=== PATIENT | female | born 1990 | race Hispanic/Latino ===

== ENCOUNTER → 2017-07-03 | Day surgery (SDC) | payer BC ==
[~2017-07-03] MED LIST: BELLADONNA/OPIUM 60 MG SUPP PR ONE; DEXAMETHASONE SOD PHOS INJ 4 MG/ML VIAL ONE; FENTANYL CITRATE/PF 100MCG/2 ML INJ ONE; FLUCONAZOLE 200 MG/100 ML 100 ML IV ONE; GENTAMICIN SULFATE 320 MG in SODIUM CHLORIDE 0.9% 100 ML 100 ML IV SCH; IOPAMIDOL 610MG/1ML 300 MG/ML VIAL IV ONE; LIDOCAINE HCL 2% LOCAL INJ 5 ML SDV VIAL INJ ONE; MIDAZOLAM HCL 2 MG/2 ML VIAL ONE; ONDANSETRON HCL INJ 2 MG/ML VIAL ONE; PIPER-TAZ 3.375 GM 50 ML ONE; PROPOFOL IV EMULSION 10 MG/ML 20 ML VIAL ONE; SEVOFLURANE INHAL SOLN 250 ML PEN BTL ONE
[2017-07-03 12:33] LABS: BASOPHILS # (AUTO) 0.1 (0.0-0.1); BASOPHILS % 0.8 % (0.0-1.0); EOSINOPHILS # (AUTO) 0.5 (0.0-0.4); EOSINOPHILS % 6.6 % (0.0-6.0); HEMATOCRIT 34.3 % (34.2-44.1); HEMOGLOBIN 11.5 g/dL (12.0-16.0); LYMPHOCYTES # (AUTO) 2.5 (1.0-3.2); LYMPHOCYTES % 34.9 % (18.0-39.1); MEAN CORPUSCULAR HGB CONC 33.5 g/dL (31-35); MEAN CORPUSCULAR VOLUME 86.6 fL (81-99); MONOCYTES # (AUTO) 0.5 (0.2-0.8); MONOCYTES % 6.9 % (4.4-11.3); NEUTROPHILS # (AUTO) 3.6 (2.1-6.9); NEUTROPHILS % 50.4 % (38.7-80.0); PLATELET COUNT 212 x10e3/uL (140-360); RED BLOOD COUNT 3.96 x10e6/uL (3.6-5.1); RED CELL DISTRIBUTION WIDTH 12.7 % (11.7-14.4)
[2017-07-03 12:45] LABS: ANION GAP 13.4 mmol/L (8-16); BLOOD UREA NITROGEN 5 mg/dL (7-26); BUN/CREATININE RATIO 8 (6-25); CALCIUM 8.9 mg/dL (8.4-10.2); CARBON DIOXIDE 21 mmol/L (22-29); CHLORIDE 109 mmol/L (98-107); CREATININE, SERUM 0.62 mg/dL (0.57-1.11); EST GLOMERULAR FILTRATION RATE > 60 ML/MIN (60-); GLUCOSE 99 mg/dL (74-118); POTASSIUM 3.4 mmol/L (3.5-5.1); SODIUM 140 mmol/L (136-145)
--- NOTE | 2017-07-03 13:04 | Diagnostic Imaging Report ---
PROCEDURE:X-RAY ABDOMEN - KUB COMPARISON:None. INDICATIONS:RIGHT STENT PRE OP, RIGHT URETAL STONE FINDINGS: There is a right double-J ureteral stent which appears in adequate position. An approximately 0.6 cm ossific density projected just lateral to the proximal to midportion of the stent. There is a non-obstructed bowel-gas pattern.. There are no acute osseous abnormalities. The lung bases are clear. CONCLUSION: 0.6 cm proximal to mid right ureteral calculus status post double-J ureteral stent placement in adequate position. Vicente Neff M.D. Dictated by: Vicente Neff M.D. on 07/03/2017 at 13:04 Electronically approved by: Vicente Neff M.D. on 07/03/2017 at 13:04
--- NOTE | 2017-09-06 12:09 | Operative Report ---
DATE OF PROCEDURE: July 03, 2017 PREOPERATIVE DIAGNOSES 1. Right ureterolithiasis. 2. Foreign body (right indwelling ureteral stent). POSTOPERATIVE DIAGNOSES 1. Right ureterolithiasis. 2. Foreign body (right indwelling ureteral stent). 3. Mild cystocele. 4. Mild rectocele. PROCEDURES PERFORMED 1. Cystourethroscopy with complicated removal of right indwelling ureteral stent (separate procedure performed for diagnosis of stent). 2. Right ureteroscopy with holmium laser lithotripsy, extraction of stone material, and placement of a new stent (separate procedure performed for diagnosis of the obstructing stone). 3. Radiological services for supervision and interpretation of ureteroscopy. 4. Interpretation of retrograde ureteropyelography. 5. Supervision of fluoroscopy, no radiologist present. 6. Pelvic examination under anesthesia. ANESTHESIA: General. COMPLICATIONS: None. CLINICAL SUMMARY: Deborah Turcios is a 27-year-old woman with an indwelling ureteral stent that was placed for obstructing stone. She was brought for the management of the stone. She is aware of the risks of bleeding, infection, injury to adjacent structures, need for additional procedures, and elected to proceed. OPERATIVE PROCEDURE IN DETAIL: Informed consent was verified. Deborah Turcios was properly identified, taken to operating room, placed on the cystoscopy table in supine position. Anesthesia was uneventfully begun. Patient was then carefully and gently repositioned in dorsal lithotomy position with all pressure points well padded. Her genitalia were prepared and draped in the usual sterile fashion. A 22.5-Jordanian cystoscope sheath with obturator in place was atraumatically inserted in patient's urethra and the bladder was drained. Panendoscopy of the bladder revealed no suspicious mucosal lesions, no tumors, no stones, and no diverticula. Stent was noted to be emerging from the right ureteral orifice. A guidewire was then placed alongside the stent and guided to the level of the patient's kidney. The stent was then grasped, completely removed, and discarded. Ureteroscope was then placed alongside the guidewire up into the right ureter. We identified this large stone. The stone was visually obstructing and there was some ureteral reaction and inflammation around it. Holmium laser lithotripsy was then utilized to break up the stone into multiple smaller fragments and then multiple passes with the basket were made in order to extract the largest of the fragments in an atraumatic fashion. Once all significantly sized stones were removed with cystoscopic and fluoroscopic guidance, a right-sided indwelling ureteral stent was then placed. It was coiled in patient's kidney as well as in the patient's bladder. The retaining suture was cut short. Interpretation of retrograde ureteropyelography: Contrast was instilled in retrograde fashion on the right hand side. There was hydroureteronephrosis down to the level of patient's stone. This was mild due to the fact that patient has had a stent in place. This new stent was in good position, coiled in patient's kidney as well as in patient's bladder at the end of the case. Patient's bladder was drained. Cystoscope was withdrawn. Pelvic examination under anesthesia revealed a mild cystorectocele. No suspicious mucosal lesions were identified. There were no obvious pelvic masses that could be appreciated. The patient was then uneventfully reversed from anesthesia and taken to the recovery room in stable condition. There were no complications through the procedure. The patient tolerated the procedure well. Plans will be to return the patient to the operating room to remove her stent and evaluate and manage any residual stones. Job#: [id number] VAS
== END | disposition home or self-care (01) ==
LOC: OR 11:00
PROVIDERS: ATTEND Urology
DX: N20.1 Calculus of ureter (principal); N20.0 Calculus of kidney; Z46.6 Encounter for fitting and adjustment of urinary device; N39.0 Urinary tract infection, site not specified; N39.46 Mixed incontinence; R35.1 Nocturia; N81.10 Cystocele, unspecified; N81.6 Rectocele; Z68.32 Body mass index [BMI] 32.0-32.9, adult
CPT/HCPCS: 36415; 52356; 74018; 74420; 80048; 81025; 83970; 84550; 85025; 88300; J1100; J1450; J1580; J2001; J2250; J2405; J2543; Q9967

== ENCOUNTER 2017-07-22 23:01 | Inpatient (IN) | payer BC ==
[~2017-07-22] VITALS: Ht 167.6 cm; Wt 91.2 kg
--- OUTSIDE RECORDS SUMMARY | 2017-07-22 23:04 | XMS REPORT ---
Author Author [facility] Address Unknown Phone Unavailable Care Team Providers Care Home Care Manager Name Role Phone PEACE DELCID Unavailable Unavailable Problems This patient has no known problems. Allergies, Adverse Reactions, Alerts This patient has no known allergies or adverse reactions. Medications This patient has no known medications. Results Test Description Test Time Test Comments Text Results Atomic Results Result Comments ABDOMEN-1VIEW (KUB) [place] [id number] Patient Name: ARI PAINTING MR #: [id number] : 1990 Age/Sex: 27/F Req #: [id number] Adm Physician: Ordered by: PEACE DELCID MD Report #: [id number] Location: OR Room/Bed: Procedure: [id number] DX/ABDOMEN-1VIEW (KUB) Exam Date: 07/03/17 Exam Time : 1200 REPORT STATUS: Signed PROCEDURE: X-RAY ABDOMEN - KUB COMPARISON: None. INDICATIONS: RIGHT STENT PRE OP, RIGHT URETAL STONE FINDINGS: There is a right double-J ureteral stent which appears in adequate position. An approximately 0.6 cm ossific density projected just lateral to the proximal to midportion of the stent. There is a non- obstructed bowel-gas pattern.. There are no acute osseous abnormalities. The lung bases are clear. CONCLUSION: 0.6 cm proximal to mid right ureteral calculus status post double-J ureteral stent placement in adequate position. Vicente Pleitez M.D. Dictated by: Vicente Pleitez M.D. on 07/03/2017 at 13:04 Electronically approved by: Vicente Pleitez M.D. on 07/03/2017 at 13:04 Dictated By: BLAYNE PLEITEZ MD, MD [id number] COPY TO: PEACE DELCID MD
[2017-07-22 23:27] LABS: BILIRUBIN,URINE NEGATIVE (NEGATIVE); KETONES,URINE NEGATIVE (NEGATIVE); LEUKOCYTE ESTERASE ,URINE 2+ (NEGATIVE); NITRITE,URINE NEGATIVE (NEGATIVE); URINE UROBILINOGEN 1 mg/dL (0.2 - 1)
[2017-07-22 23:28] LABS: CLARITY,URINE CLOUDY (CLEAR); COLOR,URINE YELLOW (YELLOW); PROTEIN,URINE DIPSTICK 2+ (NEGATIVE)
[2017-07-22 23:29] LABS: PREGNANCY TEST, URINE NEGATIVE (NEGATIVE)
[2017-07-22] MEDS ORDERED: KETOROLAC TROMETHAMINE 60 MG/2 ML VIAL IM ONE (23:30)
[2017-07-22 23:35] LABS: BACTERIA,URINE MODERATE /HPF; EPITHELIAL CELLS,URINE FEW /LPF; RBC,URINE >50 /HPF (0-5); WBC,URINE (MAN) >50 /HPF (0-5)
[2017-07-22 23:36] LABS: MUCUS,URINE MODERATE (RARE)
[2017-07-23] VITALS (7 sets, daily range): BP systolic 95–118; BP diastolic 50–60
--- NOTE | 2017-07-23 00:25 | Diagnostic Imaging Report ---
EXAM: ABDOMEN-1VIEW (KUB) DATE: 07/22/2017 11:03 PM Time stamp on exam: 2338 hours INDICATION: Ureteral stent placement COMPARISON: Retrograde pyelogram on 07/03/2017 and KUB on 07/03/2017 FINDINGS: LINES/TUBES: Right-sided double-J ureteral stent is visualized now slightly inferior when compared with imaging at placement. The proximal tip is at the level of L2 transverse process, being at the level of L1 on prior imaging BOWEL PATTERN: No evidence for obstruction. SOFT TISSUES: No abnormal calcifications. No mass effect. LUNG BASES: Not included BONES: No acute findings. IMPRESSION: 1. Mild inferior migration of double-J ureteral stent 2. Previously seen stone at the level of the proximal right ureter is no longer visualized 3. Otherwise, unremarkable study. Signed by: Dr. Pb Reyes M.D. on 07/23/2017 12:22 AM
[2017-07-23] MEDS ORDERED: CEFTRIAXONE SOD 1 GM VIAL IV SCH (01:00)
[2017-07-23 01:01] LABS: BASOPHILS # (AUTO) 0.1 (0.0-0.1); BASOPHILS % 0.7 % (0.0-1.0); EOSINOPHILS # (AUTO) 0.6 (0.0-0.4); HEMATOCRIT 34.2 % (34.2-44.1); HEMOGLOBIN 11.3 g/dL (12.0-16.0); LYMPHOCYTES # (AUTO) 2.3 (1.0-3.2); LYMPHOCYTES % 24.8 % (18.0-39.1); MEAN CORPUSCULAR HEMOGLOBIN 29.4 pg (28-32); MEAN CORPUSCULAR VOLUME 88.8 fL (81-99); MONOCYTES # (AUTO) 0.7 (0.2-0.8); MONOCYTES % 7.2 % (4.4-11.3); NEUTROPHILS # (AUTO) 5.6 (2.1-6.9); PLATELET COUNT 253 x10e3/uL (140-360); RED BLOOD COUNT 3.85 x10e6/uL (3.6-5.1)
[2017-07-23 01:19] LABS: ALANINE AMINOTRANSFERASE 39 IU/L (0-55); ALBUMIN 3.6 g/dL (3.5-5.0); ALKALINE PHOSPHATASE 102 IU/L (40-150); ANION GAP 13.6 mmol/L (8-16); BLOOD UREA NITROGEN 12 mg/dL (7-26); BUN/CREATININE RATIO 17 (6-25); CALCIUM 9.3 mg/dL (8.4-10.2); CARBON DIOXIDE 24 mmol/L (22-29); CHLORIDE 106 mmol/L (98-107); EST GLOMERULAR FILTRATION RATE > 60 ML/MIN (60-); GLUCOSE 103 mg/dL (74-118); POTASSIUM 3.6 mmol/L (3.5-5.1); SODIUM 140 mmol/L (136-145)
[2017-07-23] MEDS: SODIUM CHLORIDE 0.9% 1000ML 1,000 ML IV SCH ×2 (01:21→09:48)
--- NOTE | 2017-07-23 01:53 | Diagnostic Imaging Report ---
EXAM: CT Abdomen and Pelvis WITHOUT contrast INDICATION: Right flank pain COMPARISON: KUB on 07/22/2017 TECHNIQUE: Abdomen and pelvis were scanned utilizing a multidetector helical scanner from the lung base to the pubic symphysis without administration of IV contrast. Absence of intravenous contrast decreases sensitivity for detection of focal lesions and vascular pathology. Coronal and sagittal reformations were obtained. Stone protocol is performed. IV CONTRAST: None. ORAL CONTRAST: None RADIATION DOSE: Total DLP: 744.25 mGy*cm Estimated effective dose: (DLP x 0.015 x size factor) mSv COMPLICATIONS: None FINDINGS: LINES and TUBES: Double-J ureteral stent visualized in the right ureter with proximal tip coiled in the proximal ureter and distal tip coiled within the urinary bladder. LOWER THORAX: Unremarkable HEPATOBILIARY: No focal hepatic lesions. No biliary ductal dilation. GALLBLADDER: No radio-opaque stones or sludge. No wall thickening. SPLEEN: No splenomegaly. PANCREAS: No focal masses or ductal dilatation. ADRENALS: No adrenal nodules KIDNEYS/URETERS: No hydronephrosis. No cystic or solid mass lesions. No stones. Double-J ureteral stent as described above. GI TRACT: No abnormal distention, wall thickening, or evidence of bowel obstruction. Appendix is normal. PELVIC ORGANS/BLADDER: Unremarkable. Incidentally noted, retroflexed/neutral uterus position LYMPH NODES: No lymphadenopathy. VESSELS: Unremarkable. PERITONEUM / RETROPERITONEUM: No free air or fluid. BONES: Unremarkable. SOFT TISSUES: Unremarkable. IMPRESSION: 1. No evidence of residual nephrolithiasis. 2. Again, migration of the right ureteral stent slightly inferior when compared with day of placement with proximal tip at the proximal ureter. Signed by: Dr. Pb Reyes M.D. on 07/23/2017 1:50 AM
[2017-07-23] MEDS: MORPHINE SULFATE 2 MG/ML SYR IV PRN ×4 (02:29→21:28)
--- NOTE | 2017-07-23 09:34 | Consultation ---
DATE OF CONSULTATION: July 23, 2017 UROLOGY CONSULTATION REASON FOR CONSULTATION: Complicated urinary tract infection. HISTORY OF PRESENT ILLNESS: Deborah Turcios is a 27-year-old woman who had a ureteral stent placed by another urologist for obstructing ureterolithiasis. The patient was not getting care to her satisfaction. She has therefore transferred her care to sd. We took her to the operating room last month and removed her stent, and performed ureteroscopy with management of her stone, and replaced her stent. The patient is scheduled for subsequent surgery within the next several weeks to remove her stent and evaluate for any residual stones, and manage them as needed. The patient had right-sided flank pain and low-grade fever, and reported to the emergency room. Was evaluated and admitted. PAST MEDICAL AND SURGICAL HISTORY 1. Complicated urinary tract infection. 2. 1, para 1 by vaginal delivery. 3. Stone management as mentioned above. SOCIAL HISTORY: The patient denies smoking, ethanol and drug use. The patient works in daycare. FAMILY HISTORY: Noncontributory to the active urological problems. REVIEW OF SYSTEMS: Consistent with the above history of present illness and past medical history. Otherwise, negative for all other systems. PHYSICAL EXAMINATION GENERAL: A healthy-appearing young woman lying in bed in no apparent distress. VITALS: She is currently afebrile. Vital signs are currently stable. ABDOMEN: Soft, nondistended and nontender without costovertebral angle tenderness. Kidneys are not palpable without visceromegaly. No obvious evidence of hernia. The patient is obese. GENITOURINARY: Deferred at the present time. For the remaining physical examination systems, please refer to the admission history and physical on the chart. LABORATORY STUDIES: The patient's urinalysis is significant for microhematuria, pyuria and bacteruria. Hemoglobin is decreased at 11.3. The patient's creatinine is normal at 0.7. CT scan of the abdomen and pelvis reveals no hydronephrosis. The stent is positioned with the coil in the bladder and the secondary coil at the ureteropelvic junction region. Urine culture is pending. ASSESSMENT 1. Complicated urinary tract infection, recurrent. 2. Right renal colic. 3. Obesity. 4. Right indwelling ureteral stent. 5. Anemia. 6. History of urolithiasis: Status post ureteroscopic management. PLAN 1. I will consult Dr. Vinson who knows the patient. 2. I recommend continued IV antibiotics pending the patient's urine culture. 3. Once culture is treated, then I will take the patient to the operating room for stent removal and ureteroscopy and indicated procedures. Thank you very much for involving us in the care of your patient. I will be happy to follow her along with you, as well as an outpatient. Job#: [id number] RI cc:IRMA VINSON MD
[2017-07-23] MEDS: ONDANSETRON HCL INJ 2 MG/ML VIAL IV PRN ×2 (11:47→16:17)
[2017-07-23] MEDS: MEROPENEM 1 GM VIAL IV SCH ×2 (14:00→22:03)
[2017-07-23] MEDS ORDERED: MEROPENEM 1GM 100 ML IV SCH (14:00)
--- NOTE | 2017-07-23 14:29 | Consultation ---
DATE OF CONSULTATION: July 23, 2017 REASON FOR CONSULTATION: Pyelonephritis, UTI with multidrug resistance. HISTORY OF PRESENT ILLNESS: Ms. Turcios is a 27-year-old female, very pleasant, who is well known to me from outpatient. The patient was recently in the hospital in [facility]. At that time, she was diagnosed with UTI with multidrug resistance. The patient was discharged home with IV meropenem. She had E. coli. She received 14 days of meropenem and did very well. There was no fever and no chills. Repeated UA was negative. Patient did have a stent. The patient was placed in today to remove her old stent. The patient had a ureteral stent placed for obstructing urolithiasis. She was getting care. She was not happy with her previous urologist. She came to Dr. Batres. The patient is being admitted. There is no fever and no chills at the present time. The patient last month had removal of her stent. She received 2 weeks of IV meropenem. She is now being admitted. The patient is scheduled for subsequent surgery to remove her stent and to evaluate the stones. When I saw the patient, she is lying in bed comfortably. She denies any fever or chills. PAST MEDICAL HISTORY: Renal stone. PAST SURGICAL HISTORY: Stent placement. ALLERGIES: NKA. SOCIAL HISTORY: There is no smoking, drug abuse or alcohol abuse. FAMILY HISTORY: Unremarkable. REVIEW OF SYSTEMS: At the present time: HEENT: Negative. PULMONARY: Negative. CARDIAC: Negative. : Negative. GI: Negative. OTHER: All systems are within normal limits. LABS: White count 9.18, hemoglobin 11. Sodium 140, potassium 3.6, creatinine 0.7. Her urine showed leukocyte esterase. PHYSICAL EXAMINATION GENERAL: She is currently alert and oriented. Does not seem to be in acute distress. VITALS: Stable, currently afebrile. HEENT: She is not icteric. NECK: Supple. CHEST: Clear. COR: S1 and S2. No murmur. ABDOMEN: Soft. Bowel sounds are present. EXTREMITIES: No edema. IMPRESSION 1. History of stone. 2. History of urinary tract infection with Escherichia coli, which was extended spectrum beta lactamase. While waiting for the blood and the urine cultures, will put her meropenem for now. Recheck CBC. Recheck Chem panel. Will follow with you. Job#: [id number] MH
[2017-07-23] MEDS ORDERED: KETOROLAC TROMETHAMINE 30 MG/ML VIAL IV PRN (21:30)
--- NOTE | 2017-07-23 22:21 | History and Physical ---
CHIEF COMPLAINT: Right flank pain associated with right ureteral stent displacement. HISTORY: Patient is a 27-year-old female with a kidney stone. The patient has double-J stent placed previously. She came in with right flank pain, urinary tract infection, previous history of multidrug-resistant bacterial infection. CT scan of the abdomen and pelvis showing that migration of the right ureteral stent slightly inferior compared to previously. The patient's pain is significant. She is getting IV antibiotics and pain control. She is stable at this time. PAST MEDICAL HISTORY: Kidney stone. Ureteral stent placement. Recurrent urinary tract infection. History of pyelonephritis. SOCIAL HISTORY: Patient does not smoke or use alcohol. No recreational drug use. ALLERGIES: NO KNOWN ALLERGIES. HOME MEDICATIONS: List is reviewed. REVIEW OF SYSTEMS: As mentioned. PHYSICAL EXAMINATION: VITAL SIGNS: Temperature is 98, blood pressure 109/55, pulse rate 74, respiration 18. GENERAL: The patient is not in acute distress. She is awake. HEENT: Normocephalic, atraumatic. Anicteric. NECK: Supple grossly. PULMONARY: Clear. CARDIOVASCULAR: Regular rate and rhythm. ABDOMEN: Soft. Right flank pain. EXTREMITIES: No cyanosis or edema. NEUROLOGIC: No focal deficit. LABORATORY: Sodium is 140, potassium 3.6, chloride 106, bicarb 24, BUN 12, creatinine 0.7, glucose 103. WBC is 9.2, hemoglobin 11.3, hematocrit 34.2, platelet is 253,000. IMAGING TESTING: Showing that a double-J stent displacement on the right. Urine showed 2+ protein, greater than 50 WBCs, moderate bacteria. test is negative. IMPRESSION: 1. Multidrug-resistant urinary tract infection associated with right displaced ureteral double-J stent. 2. Persistent pain. 3. Leukosuria. 4. Complicated urinary tract infection. PLAN: Continue with meropenem. Pain control, IV fluids. Right ureteral stent removal. Will monitor the patient closely. Check the urine culture and sensitivity. Job#: [id number]
[2017-07-24] VITALS: BP 112/55
[2017-07-24 04:00] VITALS: BP 91/42
[2017-07-24] MEDS: MEROPENEM 1 GM VIAL IV SCH ×2 (05:54→14:30)
[2017-07-24] MEDS: SODIUM CHLORIDE 0.9% 1000ML 1,000 ML IV SCH ×2 (05:54→11:41)
[2017-07-24] MEDS: MORPHINE SULFATE 2 MG/ML SYR IV PRN (05:54)
[2017-07-24 08:27] VITALS: BP 106/53
[2017-07-24 09:00] VITALS: BP 106/53
[2017-07-24] MEDS ORDERED: GENTAMICIN 120MG/NS 100ML 100 ML IV STA (10:39)
[2017-07-24] MEDS ORDERED: BELLADONNA/OPIUM 60 MG SUPP PR ONE (11:57)
[2017-07-24] MEDS ORDERED: IOPAMIDOL 610MG/1ML 300 MG/ML VIAL IV ONE (11:57)
[2017-07-24 16:20] VITALS: BP 143/56
[2017-07-24 16:59] LABS: BILIRUBIN,URINE NEGATIVE (NEGATIVE); COLOR,URINE YELLOW (YELLOW); KETONES,URINE NEGATIVE (NEGATIVE); LEUKOCYTE ESTERASE ,URINE 2+ (NEGATIVE); NITRITE,URINE NEGATIVE (NEGATIVE); PROTEIN,URINE DIPSTICK NEGATIVE (NEGATIVE); URINE UROBILINOGEN 0.2 mg/dL (0.2 - 1)
[2017-07-24 17:00] LABS: CLARITY,URINE SL CLOUDY (CLEAR)
[2017-07-24 17:11] LABS: BACTERIA,URINE FEW /HPF; EPITHELIAL CELLS,URINE MODERATE /LPF; WBC,URINE (MAN) 0-5 /HPF (0-5)
[2017-07-24] MEDS ORDERED: ONDANSETRON HCL INJ 2 MG/ML VIAL ONE (18:22)
[2017-07-24] MEDS ORDERED: DEXAMETHASONE SOD PHOS INJ 4 MG/ML VIAL ONE (18:22)
[2017-07-24] MEDS ORDERED: PROPOFOL IV EMULSION 10 MG/ML 20 ML VIAL ONE (18:22)
[2017-07-24] MEDS ORDERED: GENTAMICIN SULFATE 40 MG/ML 2 ML VIAL ONE (18:22)
[2017-07-24] MEDS ORDERED: LIDOCAINE HCL 2% LOCAL INJ 5 ML SDV VIAL INJ ONE (18:22)
[2017-07-24] MEDS ORDERED: SEVOFLURANE INHAL SOLN 250 ML PEN BTL ONE (18:22)
[2017-07-24] MEDS ORDERED: FENTANYL CITRATE/PF 100MCG/2 ML INJ ONE (18:31)
[2017-07-24] MEDS ORDERED: MIDAZOLAM HCL 2 MG/2 ML VIAL ONE (18:31)
== END 2017-07-24 19:55 | disposition left against medical advice (07) | DRG 699 ==
LOC: ER 23:01 → ERHOLD 07-23 00:53 → MED/SURG3 07-23 01:17 → OBSVTOIN 07-23 21:17
PROVIDERS: ADMIT Internal Medicine; ATTEND Internal Medicine
PROC: 0TP98DZ Removal of Intraluminal Device from Ureter, Via Natural or Artificial Opening Endoscopic (ICD-10-PCS; principal; 2017-07-24 14:30)
DX: T83.593A Infection and inflammatory reaction due to other urinary stents, initial encounter (principal); N12 Tubulo-interstitial nephritis, not specified as acute or chronic; B96.20 Unspecified Escherichia coli [E. coli] as the cause of diseases classified elsewhere; Z16.24 Resistance to multiple antibiotics; D64.9 Anemia, unspecified; E66.9 Obesity, unspecified; Z68.32 Body mass index [BMI] 32.0-32.9, adult; Z87.442 Personal history of urinary calculi; Z16.12 Extended spectrum beta lactamase (ESBL) resistance
CPT/HCPCS: 36415; 74018; 74176; 74420; 80053; 81001; 81025; 85025; 87040; 87086; 96360; 96361; 99284; J0696; J1100; J1580; J1885; J2001; J2185; J2250; J2270; J2405; J7030